=== PATIENT | female | born 1925 | race Caucasian/White ===

== ENCOUNTER 2016-08-07 17:35 | Emergency (ER) | payer MEDICARE, OTHER ==
--- NOTE | 2016-08-07 19:20 | EDM.PDOC ---
ED HPI RENAL/ - General Time Seen by Provider: 08/07/16 18:10 - History of Present Illness INITIAL COMMENTS - FREE TEXT/NARRATIVE: DICTATED BY ABRAHAM HALEY PA-C - Related Data Allergies/ADRs: Allergies Allergy/AdvReac Type Severity Reaction Status Date / Time amoxicillin Allergy Hives Verified 08/07/16 17:52 cephalexin [From Keflex] Allergy Other Verified 08/07/16 17:54 donepezil [From Aricept] Allergy Delusions Verified 08/07/16 17:53 lisinopril Allergy Renal Verified 08/07/16 17:54 Insufficiency Home Meds: Home Meds Aspirin [Halfprin] 81 mg PO BRK 08/07/16 [History] Calcium Carbonate/Vitamin D3 [Calcium 500 + Vit D Caplet] 1 each PO DAILY [History] Carvedilol [Carvedilol] 1 tab PO ASDIRECTED 08/07/16 [History] Cholecalciferol (Vitamin D3) [Vitamin D3] 2,000 unit PO DAILY 08/07/16 [History] Chrm/[place]/ Bt-Org Peel/Gr T [Apple Cider Vinegar Plus TB] 1 each PO TID 08/07 [History] Ciprofloxacin HCl [Cipro] 1 tab PO BID 08/07/16 [History] Clobetasol [Clobetasol Propionate 0.05%] 30 gm TOP BID 08/07/16 [History] Docusate Sodium [Colace] 100 mg PO DAILY 08/07/16 [History] Ferrous Sulfate 325 mg PO DAILY 08/07/16 [History] Furosemide [Furosemide] 1 tab PO DAILY 08/07/16 [History] Memantine [Namenda XR] 14 mg PO DAILY 08/07/16 [History] Niacin 500 mg PO BEDTIME 08/07/16 [History] Potassium Chloride 20 meq PO TID 08/07/16 [History] Simvastatin [Simvastatin] 10 mg PO BEDTIME 08/07/16 [History] amLODIPine Besylate [Amlodipine Besylate] 1 tab PO DAILY 08/07/16 [History] glipiZIDE [Glipizide Xl] 5 mg PO DAILY 08/07/16 [History] ED ROS GENERAL - Review of Systems Review Of Systems: See Below (DICTATED BY ABRAHAM KLABO, PA-C) ED EXAM, RENAL/ - Physical Exam Exam: See Below (DICTATED BY ABRAHAM HALEY PA-C) Course - Vital Signs Last Recorded V/S: Last Vital Signs Temp 36.8 C 08/07/16 17:40 Pulse 94 08/07/16 17:40 Resp 16 08/07/16 17:40 BP 152/81 H 08/07/16 17:40 Pulse Ox 94 L 08/07/16 17:40 - Orders/Labs/Meds Orders: Active Orders 24 hr Category Date Time Status Urinary Catheter Assessment [RC] ASDIRECTED Care 08/07/16 17:56 Active Urinary Catheter Insertion [Insert Urinary Catheter] [ Care 08/07/16 18:00 Ordered OM.PC] Q24H Labs: Laboratory Tests 08/07/16 08/07/16 08/07/16 Range/Units 18:37 19:22 19:22 WBC 12.2 H (4.0-10.0) x10^3/uL RBC 4.03 (4.00-5.50) x10^6/uL Hgb 12.2 (12.0-16.0) g/dL Hct 35.4 (33.0-47.0) % MCV 87.8 (78.0-93.0) fL MCH 30.3 (26.0-32.0) pg MCHC 34.5 (32.0-36.0) g/dL RDW Coeff of [place]ores 13.0 (10.0-15.0) % Plt Count 301 (130-400) x10^3/uL Neut % (Auto) 75.2 (50.0-80.0) % Lymph % (Auto) 11.2 L (25.0-50.0) % Boundary % (Auto) 10.7 (2.0-11.0) % Eos % (Auto) 2.7 (0.0-4.0) % Baso % (Auto) 0.2 (0.2-1.2) % Sodium 139 (136-145) mmol/L Potassium 4.2 (3.5-5.1) mmol/L Chloride 102 (98-107) mmol/L Carbon Dioxide 25 (21-32) mmol/L BUN 17 (7-18) mg/dL Creatinine 1.3 H (0.55-1.02) mg/dL Est Cr Clr Drug Dosing 24.27 mL/min Estimated GFR (MDRD) 39 Glucose 276 H (74-106) mg/dL Calcium 10.1 (8.5-10.1) mg/dL Corrected Calcium 10.66 H (8.5-10.1) mg/dL Total Bilirubin 0.4 (0.2-1.0) mg/dL AST 11 L (15-37) U/L ALT 22 (14-59) U/L Alkaline Phosphatase 107 (46-116) U/L Total Protein 7.3 (6.4-8.2) g/dL Albumin 3.3 L (3.4-5.0) g/dL Globulin 4.0 Albumin/Globulin Ratio 0.83 Urine Color Yellow (YELLOW) Urine Appearance Turbid H (CLEAR) Urine pH 5.5 (5.0-8.0) Ur Specific [place] 1.020 Urine Protein 100 H (NEGATIVE) mg/dL Urine Glucose (UA) 500 H (NEGATIVE) mg/dL Urine Ketones Negative (NEGATIVE) mg/dL Urine Occult Blood Moderate H (NEGATIVE) Urine Nitrite Negative (NEGATIVE) Urine Bilirubin Negative (NEGATIVE) Urine Urobilinogen 0.2 (0.2) EU/dL Ur Leukocyte Esterase Large H (NEGATIVE) Urine RBC 5-10 H (NOT SEEN) /HPF Urine WBC Packed (NOT SEEN) /HPF Urine WBC Clumps Moderate Ur Squamous Epith Cells Rare (NEGATIVE) /HPF Amorphous Sediment Moderate Urine Bacteria Many H (NEGATIVE) /HPF Urine Mucus Rare H (NEGATIVE) /LPF Departure - Departure Time of Disposition: 20:17 Disposition: Home, Self-Care 01 Condition: good Clinical Impression: Uterine prolapse, Hyperglycemia Referrals: Antonella Peck MD [Primary Care Provider] - Forms: ED Department Discharge Additional Instructions: 1. Stay well hydrated and rest 2. Watch sugars closely 3. Lay down more versus sitting up 3. Drink acidic juices without sugar 4. Call clinic in the morning to see if you can get in to see Dr. Peck sooner - Problem List Review Problem List Initiated/Reviewed/Updated: Yes
[2016-08-07 19:40] VITALS: BP 152/81
--- NOTE | 2016-08-07 21:34 | ER ---
Date of Service: 08/07/2016 SUBJECTIVE: The patient presents to the emergency room with concerns of urinary tract infection and uterine prolapse. The patient has a history of uterine prolapse. It is becoming more and more problematic and is prolapsing very easily. The patient does have a history of dementia. She has already seen Dr. Dudley and they did attempt to fit her for a pessary, but did not have appropriate sized pessary device. They are at this point deciding going to follow up with Dr. Dudley to decide whether to go with a pessary or have the patient undergo a hysterectomy, however, they are concerned about the patient undergoing anesthesia given her history of dementia and her advanced age. She is scheduled to see Dr. Dudley again on the . Daughter states that the patient has been told to not set up in a full seated or semi-Aden's position, but the daughter states that she sits up right most of the day on a sofa. Daughter states that she is on her last day of a course of Cipro for urinary tract infection due to abnormal urethral anatomy caused by the prolapse. She does have a history of frequent urinary tract infections secondary to this as well. PAST MEDICAL HISTORY: 1. Hypertension. 2. Dementia. 3. Dyslipidemia. 4. Type 2 diabetes mellitus. 5. Hypertension. 6. Frequent UTI. MEDICATIONS: 1. Ciprofloxacin. 2. Carvedilol. 3. Simvastatin. 4. Potassium chloride. 5. Niacin. 6. Namenda. 7. Glipizide. 8. Furosemide. 9. Amlodipine. ALLERGIES: Amoxicillin, cephalexin, donepezil, and lisinopril. REVIEW OF SYSTEMS: Denies any chest pain, shortness of breath, abdominal pain, fever, chills, or lightheadedness, or other worrisome signs or symptoms. PHYSICAL EXAMINATION: General: This is an 89-year-old female patient, who is in no acute distress. Vital Signs: Please see nurse's notes. Skin: Warm, pale, and dry. HEENT. Head is normocephalic, atraumatic. Mouth, oral mucosa is moist. Lungs: Clear to auscultation. Heart: Regular rate and rhythm. Abdomen: Soft, nontender. Genitourinary: The patient's cervix and internal vaginal wall is exposed and the uterus is palpable outside of the vaginal opening. Her urethral meatus is extremely enlarged and appears to be muscularly incompetent and unable to remain closed, which of course would increase her risk of urinary tract infection. LABORATORY DATA: 1. Urinalysis, CBC, and comprehensive metabolic panel were obtained and are pending. EMERGENCY ROOM COURSE: A bladder scan was performed and the patient had approximately 450 mL of urine in her bladder, which she was unable to expel due to pain. Subsequently, a Rouse catheter with leg bag was placed. The uterus, cervix, and internal vaginal canal were reduced without difficulty. It was a bit edematous, but we were able to replace it without difficulty. ASSESSMENT: 1. Urinary tract infection. 2. Uterine prolapse. PLAN: Please refer to Daquan Sims's dictation regarding disposition for this patient. MWK: 08/07/2016 19:33:42 MODL: 08/07/2016 21:27:38 /[id number]
== END 2016-08-07 20:43 | disposition home or self-care (01) ==
LOC: VM.ED 17:35
DX: N39.0 Urinary tract infection, site not specified (principal); N81.4 Uterovaginal prolapse, unspecified; I10 Essential (primary) hypertension; F03.90 Unspecified dementia, unspecified severity, without behavioral disturbance, psychotic disturbance, mood disturbance, and anxiety; E78.5 Hyperlipidemia, unspecified; E11.9 Type 2 diabetes mellitus without complications; Z88.1 Allergy status to other antibiotic agents; Z88.8 Allergy status to other drugs, medicaments and biological substances
CPT/HCPCS: 36415; 51702; 80053; 81001; 85025; 99282-GF; 99285

== ENCOUNTER 2016-08-09 17:41 | Emergency (ER) | payer MEDICARE, OTHER ==
--- NOTE | 2016-08-09 23:43 | ER ---
Date of Service: 08/09/2016 SUBJECTIVE: Jeremie presents to the emergency room with complaints of uterine prolapse and chronic cystitis. She was seen by me in the emergency room on Saturday and a Rouse catheter was placed. The patient's care was transferred to [facility]. The patient was subsequently discharged. She has been having discomfort and difficulty with urination due to chronic uterine prolapse. 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 PAST MEDICAL HISTORY: 1. Hypertension. 2. Dementia. 3. Dyslipidemia. 4. Type 2 diabetes mellitus. 5. Frequent UTIs. MEDICATIONS: 1. Ciprofloxacin. 2. Carvedilol. 3. Simvastatin. 4. Potassium chloride. 5. Niacin. 6. Namenda. 7. Glipizide. 8. Furosemide. 9. Amlodipine. ALLERGIES: To amoxicillin, cephalexin, donepezil, and lisinopril. REVIEW OF SYSTEMS: Denies any fever, chills, chest pain, shortness of breath, lightheadedness, or other worrisome signs or symptoms. PHYSICAL EXAMINATION: General: This is an 89-year-old female patient, in no acute distress. Vital Signs: Please see nurse's notes. The patient is afebrile. Skin: Warm, pale, and dry. HEENT: Mouth, oral mucosa is moist. Lungs: Clear to auscultation. Heart: Regular rate and rhythm. Abdomen: Soft, nontender. She has no CVA tenderness. Genitourinary: She does have a purulent appearing urine on examination following catheterization. EMERGENCY ROOM COURSE: Rouse catheter was placed. Approximately 600 mL of urine was drained immediately. This was subsequently placed to a leg bag. Urine was cultured to determine what type of bacteria is causing this infection. To note, she has been on numerous antibiotics including Cipro, Macrobid, and Bactrim. ASSESSMENT: 1. Chronic urinary tract infection. 2. Uterine prolapse. PLAN: Again, we will have her follow up with her specialist as previously stated. Return to the emergency room if she develops any abdominal pain, chest pain, shortness of breath, fever, chills, or other worrisome signs or symptoms. MWK: 08/09/2016 20:10:08 MODL: 08/09/2016 23:33:46 /[id number]
[2016-08-10 00:27] VITALS: BP 157/79
== END 2016-08-09 20:14 | disposition home or self-care (01) ==
LOC: VM.ED 17:41
DX: N39.0 Urinary tract infection, site not specified (principal); N81.4 Uterovaginal prolapse, unspecified; I10 Essential (primary) hypertension; E78.5 Hyperlipidemia, unspecified; E11.9 Type 2 diabetes mellitus without complications; Z79.899 Other long term (current) drug therapy; Z88.1 Allergy status to other antibiotic agents; Z88.8 Allergy status to other drugs, medicaments and biological substances
CPT/HCPCS: 51702; 51798; 87086; 99283; 99283-GF